=== PATIENT | female | born 1975 | race Caucasian/White ===

== ENCOUNTER 2017-04-10 22:09 | Emergency (ER) | payer BC ==
[~2017-04-10] VITALS: Ht 175.3 cm; Wt 90.7 kg
--- NOTE | ~2017-04-10 | CR281 ---
[facility]. [facility] A Service of [facility] RADIOLOGY TEXT RESULTS PATIENT: BERNADINE CEBALLOS LOCATION: SED : 71 UNIT #: [id number] AGE: [address]: Roe Espinoza MD SEX: F ORDER DR: [id number] [address] [id number] [id number] MR#: [id number] Acc #: [id number] NAME: BERNADINE CEBALLOS : 1975 SEX: F STUDY DATE/TIME: 04/10/2017 22:29 UNIT: SED ROOM: STUDY DESCRIPTION: CR Wrist Min 3 View Lt Attending Physician: Roe Espinoza M.D. Ordering Physician: Roe Espinoza M.D. Primary Care Physician: Joe Younger MEDICAL IMAGING REPORT This report is preliminary unless electronic signature is present. EXAM Left wrist, 3 views. COMPARISON None. INDICATION 41-year-old female with left anterior wrist pain after falling tonight. FINDINGS Bones are anatomically aligned. No evidence of acute fracture or degenerative change. IMPRESSION No acute abnormality. Dictated by... Papo Lopez M.D. THIS IS AN ELECTRONICALLY VERIFIED REPORT Papo Lopez M.D. at 04/16/2017 9:07 AM PHAM/kristyn TD: 04/11/2017 11:48 JOB #: [id number] MEDICAL IMAGING REPORT Page 1 of 1
[2017-04-10] MEDS ORDERED: ADDERALL PO (22:22)
[2017-04-10] MEDS ORDERED: LISINOPRIL (22:22)
== END 2017-04-11 00:21 | disposition home or self-care (01) ==
LOC: SED 22:09
DX: S63.502A Unspecified sprain of left wrist, initial encounter (principal); Z79.899 Other long term (current) drug therapy; Z88.0 Allergy status to penicillin; Z88.1 Allergy status to other antibiotic agents; W18.30XA Fall on same level, unspecified, initial encounter; Y92.009 Unspecified place in unspecified non-institutional (private) residence as the place of occurrence of the external cause
CPT/HCPCS: 29125; 73110; 99283